=== PATIENT | male | born 1975 | race Hispanic/Latino ===

== ENCOUNTER 2021-11-08 08:18 | Emergency (ER) | payer OTHER ==
[~2021-11-08] VITALS: Ht 175.3 cm; Wt 99.8 kg
== END 2021-11-08 09:35 | disposition home or self-care (01) ==
LOC: ER 09:24
DX: I10 Essential (primary) hypertension (principal); R42 Dizziness and giddiness
CPT/HCPCS: 93005; 99282

== ENCOUNTER 2025-01-08 15:11 | Emergency (ER) | payer OTHER ==
[~2025-01-08] VITALS: Ht 180.3 cm; Wt 90.7 kg
[2025-01-08 15:49] VITALS: PULSE 80; RESP 18; TEMP 98.3
[2025-01-08 16:07] LABS: BASOPHILS # (AUTO) 20.6 (0.0-0.1); BASOPHILS % 8.4 % (0.0-1.0); EOSINOPHILS # (AUTO) 6.2 (0.0-0.4); EOSINOPHILS % 2.5 % (0.0-6.0); HEMOGLOBIN 11.6 g/dL (14.0-18.0); LYMPHOCYTES # (AUTO) 7.9 (1.0-3.2); LYMPHOCYTES % 3.2 % (18.0-39.1); MEAN CORPUSCULAR HEMOGLOBIN 30.2 pg (28-32); MEAN CORPUSCULAR HGB CONC 34.1 g/dL (31-35); MEAN CORPUSCULAR VOLUME 88.5 fL (81-99); MONOCYTES # (AUTO) 9.5 (0.2-0.8); MONOCYTES % 3.9 % (4.4-11.3); NEUTROPHILS # (AUTO) 119.5 (2.1-6.9); NEUTROPHILS % 48.6 % (38.7-80.0); PLATELET COUNT 645 x10e3/uL (140-360); RED BLOOD COUNT 3.84 x10e6/uL (4.3-5.7); RED CELL DISTRIBUTION WIDTH 15.4 % (11.7-14.4)
[2025-01-08 16:09] LABS: WHITE BLOOD COUNT 245.78 x10e3/uL (4.8-10.8)
[2025-01-08 16:36] LABS: ALBUMIN 4.1 g/dL (3.5-5.0); ALBUMIN/GLOBULIN RATIO 1.1 (0.8-2.0); ANION GAP 17.7 mmol/L (8-16); BILIRUBIN,TOTAL 0.8 mg/dL (0.2-1.2); CALCIUM 9.3 mg/dL (8.4-10.2); CREATININE, SERUM 1.07 mg/dL (0.72-1.25); POTASSIUM 3.7 mmol/L (3.5-5.1); TOTAL PROTEIN 7.7 g/dL (6.5-8.1)
[2025-01-08 16:53] LABS: CLARITY,URINE CLEAR (CLEAR); COLOR,URINE YELLOW (YELLOW); LEUKOCYTE ESTERASE ,URINE NEGATIVE (NEGATIVE); NITRITE,URINE NEGATIVE (NEGATIVE); PH,URINE 5.5 (5 - 7)
[2025-01-08 16:54] LABS: BACTERIA,URINE FEW /HPF; BILIRUBIN,URINE NEGATIVE (NEGATIVE); EPITHELIAL CELLS,URINE FEW /LPF; GLUCOSE, URINE 1+ (NEGATIVE); KETONES,URINE NEGATIVE (NEGATIVE); PROTEIN,URINE DIPSTICK NEGATIVE (NEGATIVE); RBC,URINE 0-5 /HPF (0-5); URINE UROBILINOGEN 0.2 mg/dL (0.2 - 1); WBC,URINE (MAN) 0-5 /HPF (0-5)
[2025-01-08 17:10] LABS: BAND NEUTROPHILS % (MANUAL) 5 %; BLAST CELLS % MANUAL 4; EOSINOPHILS % (MANUAL) 5 % (0-7); LYMPHOCYTES % (MANUAL) 3 % (19-48); METAMYELOCYTES % (MANUAL) 9 % (0-0); MONOCYTES % (MANUAL) 3 % (3.4-9.0); MYELOCYTES % (MANUAL) 8 % (0-0); NEUTROPHILS % (MANUAL) 63 % (40-74); PLATELET ESTIMATE SLIGHTLY INCREASED; PLATELET MORPHOLOGY COMMENT NORMAL; RBC MORPHOLOGY COMMENT NORMAL
[2025-01-08] MEDS: KETOROLAC TROMETHAMINE 30 MG/ML VIAL IV STA (17:35)
[2025-01-08] MEDS: SODIUM CHLORIDE 0.9% 1000ML 1,000 ML IV ONE (17:35)
[2025-01-08 17:49] VITALS: BP 119/84; PULSE 71; RESP 18; TEMP 98.3; O2SAT 98
== END 2025-01-08 17:51 | disposition home or self-care (01) ==
LOC: ER 15:55
DX: R10.12 Left upper quadrant pain (principal); D72.829 Elevated white blood cell count, unspecified; M54.50 Low back pain, unspecified; I10 Essential (primary) hypertension; E11.65 Type 2 diabetes mellitus with hyperglycemia; Z85.89 Personal history of malignant neoplasm of other organs and systems
CPT/HCPCS: 36415; 74176; 80053; 81001; 83690; 85025; 99284; J1885; J7030